=== PATIENT | female | born 1960 ===

== ENCOUNTER → 2021-10-05 | Outpatient (CLI) | payer OTHER ==
[~2021-10-05] MED LIST: INDERAL LA80 MG; ZOCOR5 MG
== END | disposition home or self-care (01) ==
LOC: SONOGRAMA 08:55
PROVIDERS: ATTEND General Practice
DX: M77.11 Lateral epicondylitis, right elbow (principal); M25.521 Pain in right elbow; M25.531 Pain in right wrist